=== PATIENT | male | born 1950 | race Caucasian/White ===

== ENCOUNTER 2017-08-26 12:41 | Outpatient (CLI) | payer MEDICARE, BC | END 2017-08-26 12:42 | disposition home or self-care (01) | LOC: BICRAD 12:41 | PROVIDERS: ATTEND Podiatrist | DX: M79.675 Pain in left toe(s) (principal) ==

== ENCOUNTER 2017-09-14 08:40 | Outpatient (CLI) | payer MEDICARE, BC ==
[2017-09-14 09:40] LABS: Mean Corpuscular HGB CONC 35.4 g/dL (32.0-36.0); Mean Corpuscular Hemoglobin 33.4 pg (27.0-31.0); Mean Corpuscular Volume 94.4 fl (80.0-94.0); Mean Platelet Volume 6.4 fL (7.4-10.4); Platelet Count 222 thou/uL (130-400); RBC Distribution Width 11.7 % (11.5-14.5); White Blood Cell (WBC) Count 5.2 thou/uL (4.8-10.8)
== END 2017-09-14 08:41 | disposition home or self-care (01) ==
LOC: LABBT 08:40
PROVIDERS: ATTEND Podiatrist
DX: Z01.812 Encounter for preprocedural laboratory examination (principal); M10.9 Gout, unspecified; M21.612 Bunion of left foot
CPT/HCPCS: 85027

== ENCOUNTER 2017-09-16 07:30 | Day surgery (SDC) | payer MEDICARE, BC ==
[2017-09-14 09:01] VITALS: BMI 29.5
[~2017-09-16 07:30] MED LIST: Ketorolac Tromethamine 30 MG/ML VIAL ONE; Lidocaine 1% PF 5 ML VIAL ONE; Ondansetron HCl/PF 4 MG/2 ML Vial ONE; PHENYLEPHRINE-NS 100 MCG/ML 10 ML SYRINGE ONE; Propofol 200 MG/20 ML VIAL ONE; ePHEDrine/0.9% NaCl/PF SYRINGE 50 mg/10 ml ONE
[2017-09-16] MEDS ORDERED: Bacitracin Zinc Ointment 30 gm TUBE ONE (09:48)
[2017-09-16] MEDS ORDERED: Neomycin-Polymyxin 1 ML AMP ONE (09:48)
[2017-09-16] MEDS ORDERED: Bupivacaine PF 0.5% 30 ML VIAL ONE (09:48)
[2017-09-16] MEDS ORDERED: Fentanyl 250 MCG/5 ML VIAL ONE (09:50)
[2017-09-16] MEDS ORDERED: Promethazine HCl 25 MG/ML VIAL ONE (09:51)
[2017-09-16] MEDS ORDERED: Propofol 1,000 MG/100 ML VIAL IV ONE (09:51)
== END 2017-09-16 12:17 | disposition home or self-care (01) ==
LOC: SDC 07:30
PROVIDERS: ATTEND Podiatrist
PROC: 0QBR0ZZ Excision of Left Toe Phalanx, Open Approach (ICD-10-PCS; principal; 2017-09-16)
DX: M21.612 Bunion of left foot (principal); M10.072 Idiopathic gout, left ankle and foot; M19.072 Primary osteoarthritis, left ankle and foot; M20.12 Hallux valgus (acquired), left foot; Z88.8 Allergy status to other drugs, medicaments and biological substances; Z98.890 Other specified postprocedural states
CPT/HCPCS: J1885; J2001; J2405; J2550; J2704; J3010; S0020

== ENCOUNTER 2019-10-22 07:41 | Outpatient (CLI) | payer MEDICARE, BC ==
--- NOTE | 2019-10-22 14:44 | MRI ---
MRI OF LEFT SHOULDER PERFORMED WITHOUT CONTRAST ENHANCEMENT: HISTORY: Left shoulder pain after falling in July. 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 There is some edema change involving the dist al end of the clavicle with some changes most pronounced at the AC joint level. This could indicate the sequelae of injury or related to osteolysis-type change. It may indicate a subtle trabecular fra cture. There is considerable motion artifact on this examination. There is a full-thickness partial-width f ar anterior tear of the anterior fibers of the supraspinatus tendon. It is somewhat difficult to est imate the size, although it appears to be approximately 7 mm in AP dimension. The tendon is retracte d by approximately a centimeter in this level. This is associated with a higher grade tear of the morgan bscapularis tendon. There appear to be a few of the more superior fibers intact, but the majority of the tendon is torn. The tear is involving the more anterior portion of the tendon which is retracte d by greater than a centimeter. Some of the undersurface articular-sided fibers are still intact. T here is dislocation of biceps tendon which is not a true intraarticular dislocation. It appears to b e more extending into the interstitium of this torn subscapularis tendon. There is moderate joint ef fusion associated with this. The inferior glenohumeral ligament is intact. The posterior inferior labrum and bony glenoid is some what irregular in appearance. 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 This probably is sequelae of a fracture and heal ing. I do not appreciate any significant rotator cuff muscle atrophy. IMPRESSION: 1. Examination is limited in quality due to motion artifact. 2. Marrow edema changes involving the distal end of the clavicle. Given the history of trauma, this could be the sequelae of injury or osteolysis related to the arthritic change at this level. 3. Far anterior partial width full-thickness supraspinatus tendon tear measuring approximately 7 mm in AP dimension. Fibers were retracted by approximately a centimeter. This is associated with a hig h-grade subscapularis tendon tear. A few of the superior fibers may still be intact and some of the undersurface more articular-sided fibers are still intact, but the majority of the tendon appears tor n and there is dislocation of the biceps tendon into the interstitium of the torn subscapularis tendo n. 4. Irregular appearance to the posterior inferior glenoid and labrum. 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 POS: [facility]
== END 2019-10-22 07:42 | disposition home or self-care (01) ==
LOC: BICMRI 07:41
PROVIDERS: ATTEND Orthopaedic Surgery
DX: S46.012A Strain of muscle(s) and tendon(s) of the rotator cuff of left shoulder, initial encounter (principal)

== ENCOUNTER 2019-11-12 07:19 | Outpatient (CLI) | payer MEDICARE, BC, OTHER ==
[2019-11-12 13:54] LABS: #Eosinphils 0.3 thou/uL (0.0-0.7); #Lymphocytes 1.5 thou/uL (1.20-3.40); #Monocytes 0.6 thou/uL (0.11-0.59); #Neutrophils 3.6 thou/uL (1.40-6.50); %Basophils 0.7 % (0.0-1.0); %Eosinophils 5.4 % (0.0-10.0); %Lymphocytes 24.7 % (21.0-51.0); %Monocytes 9.4 % (0.0-10.0); %Neutrophils 59.9 % (42.0-75.0); Hemoglobin 15.5 g/dL (14.0-18.0); Mean Corpuscular HGB CONC 33.9 g/dL (32.0-36.0); Mean Corpuscular Hemoglobin 33.9 pg (27.0-31.0); Mean Corpuscular Volume 99.9 fL (78.0-98.0); Mean Platelet Volume 7.3 fL (7.4-10.4); Platelet Count 218 thou/uL (130-400); RBC Distribution Width 11.7 % (11.5-14.5); Red Blood Cell (RBC) Count 4.58 mill/uL (4.70-6.10)
[2019-11-12 17:40] LABS: SARS-CoV-2 MS2 Positive; SARS-CoV-2 N Gene Negative; SARS-CoV-2 S Gene Negative; SARS-CoV-2 orf1ab Negative
== END 2019-11-12 07:20 | disposition home or self-care (01) ==
LOC: LABBT 07:19
PROVIDERS: ATTEND Orthopaedic Surgery
DX: Z01.812 Encounter for preprocedural laboratory examination (principal); Z11.59 Encounter for screening for other viral diseases; S46.012A Strain of muscle(s) and tendon(s) of the rotator cuff of left shoulder, initial encounter
CPT/HCPCS: 85025; U0003; 87635

== ENCOUNTER 2020-10-07 17:38 | Inpatient (IN) | payer MEDICARE, BC ==
[2020-10-07 18:12] LABS: #Basophils 0.1 thou/uL (0.0-0.2); #Eosinphils 0.4 thou/uL (0.0-0.7); #Lymphocytes 1.3 thou/uL (1.20-3.40); #Monocytes 0.5 thou/uL (0.11-0.59); #Neutrophils 6.5 thou/uL (1.40-6.50); %Basophils 0.6 % (0.0-1.0); %Eosinophils 4.3 % (0.0-10.0); %Lymphocytes 14.7 % (21.0-51.0); %Monocytes 6.1 % (0.0-10.0); %Neutrophils 74.4 % (42.0-75.0); Hemoglobin 15.1 g/dL (14.0-18.0); Mean Corpuscular HGB CONC 35.2 g/dL (32.0-36.0); Mean Corpuscular Hemoglobin 34.3 pg (27.0-31.0); Mean Corpuscular Volume 97.4 fL (78.0-98.0); Mean Platelet Volume 6.9 fL (7.4-10.4); Platelet Count 242 thou/uL (130-400); RBC Distribution Width 11.6 % (11.5-14.5); Red Blood Cell (RBC) Count 4.39 mill/uL (4.70-6.10); White Blood Cell (WBC) Count 8.7 thou/uL (4.8-10.8)
[2020-10-07] MEDS ORDERED: Nitroglycerin 2% Ointment 1 INCH/1 GM Packet ONE (18:28)
[2020-10-07] MEDS ORDERED: Aspirin Chewable 81 MG TAB ONE (18:28)
[2020-10-07 18:45] LABS: ALT (SGPT) 19 U/L (8-55); AST (SGOT) 22 U/L (5-34); Albumin 4.4 g/dL (3.4-4.8); Alkaline Phosphatase 75 U/L (40-110); Anion Gap 12 mmol/L (10-20); BUN (Urea Nitrogen) 16 mg/dL (8.4-25.7); Bilirubin, Total 0.6 mg/dL (0.2-1.2); Calc. Creatinine Clearance 0 mL/min (70-130); Calcium 9.8 mg/dL (7.8-10.44); Carbon Dioxide 27 mmol/L (23-31); Chloride 105 mmol/L (98-107); Globulin 2.9 g/dL (2.4-3.5); Glucose 88 mg/dL (80-115); Lipase 21 U/L (8-78); Potassium 4.3 mmol/L (3.5-5.1); Protein, Total 7.3 g/dL (5.8-8.1); Sodium 140 mmol/L (136-145)
[2020-10-07 21:28] LABS: Troponin I Less than 0.010 ng/mL (< 0.028)
[2020-10-07] MEDS ORDERED: Ondansetron ODT 4 MG TAB PO PRN (22:05)
[2020-10-07] MEDS ORDERED: Acetaminophen 325 MG TAB PO PRN (22:05)
[2020-10-07] MEDS ORDERED: HYDROcodone/Acetaminophen 5/325 mg Tablet PO PRN (22:05)
[2020-10-07] MEDS ORDERED: Ondansetron PF 4 MG/2 ML Vial IVP PRN (22:05)
[2020-10-07 22:13] VITALS: BMI 28.0
[2020-10-07 22:34] LABS: Magnesium 1.9 mg/dL (1.6-2.6)
[2020-10-08 00:26] LABS: Troponin I Less than 0.010 ng/mL (< 0.028)
[2020-10-08 04:26] LABS: #Lymphocytes 0.6 thou/uL (1.20-3.40); #Monocytes 0.1 thou/uL (0.11-0.59); #Neutrophils 6.9 thou/uL (1.40-6.50); %Basophils 0.1 % (0.0-1.0); %Eosinophils 0.1 % (0.0-10.0); %Lymphocytes 8.5 % (21.0-51.0); %Monocytes 0.6 % (0.0-10.0); %Neutrophils 90.7 % (42.0-75.0); Hemoglobin 13.9 g/dL (14.0-18.0); Mean Corpuscular HGB CONC 35.5 g/dL (32.0-36.0); Mean Corpuscular Hemoglobin 34.7 pg (27.0-31.0); Mean Corpuscular Volume 97.7 fL (78.0-98.0); Mean Platelet Volume 7.2 fL (7.4-10.4); Platelet Count 215 thou/uL (130-400); RBC Distribution Width 11.4 % (11.5-14.5); Red Blood Cell (RBC) Count 4.01 mill/uL (4.70-6.10); White Blood Cell (WBC) Count 7.6 thou/uL (4.8-10.8)
[2020-10-08 04:45] LABS: Anion Gap 14 mmol/L (10-20); BUN (Urea Nitrogen) 22 mg/dL (8.4-25.7); Calc. Creatinine Clearance 75 mL/min (70-130); Calcium 9.7 mg/dL (7.8-10.44); Carbon Dioxide 25 mmol/L (23-31); Chloride 103 mmol/L (98-107); Glucose 235 mg/dL (80-115); Potassium 4.1 mmol/L (3.5-5.1); Sodium 138 mmol/L (136-145)
[2020-10-08 05:22] LABS: SARS-CoV-2 PCR by NAA Not Detected (NotDetected)
[2020-10-08] MEDS ORDERED: Allopurinol 100 MG TAB PO PRN (07:35)
[2020-10-08] MEDS ORDERED: ADENOSINE 60 MG/20 ML VIAL ONE (08:42)
[2020-10-08] MEDS: Enoxaparin Sodium 40 MG/0.4 ML SYRINGE SC SCH (09:27)
[2020-10-09 07:55] LABS: Anion Gap 10 mmol/L (10-20); Calc. Creatinine Clearance 92 mL/min (70-130); Calcium 9.1 mg/dL (7.8-10.44); Carbon Dioxide 30 mmol/L (23-31); Chloride 103 mmol/L (98-107); Glucose 110 mg/dL (80-115); Potassium 4.3 mmol/L (3.5-5.1); Sodium 139 mmol/L (136-145)
[2020-10-09 08:04] LABS: #Eosinphils 0.1 thou/uL (0.0-0.7); #Lymphocytes 1.3 thou/uL (1.20-3.40); #Monocytes 1.1 thou/uL (0.11-0.59); #Neutrophils 14.3 thou/uL (1.40-6.50); %Eosinophils 0.4 % (0.0-10.0); %Lymphocytes 7.7 % (21.0-51.0); %Monocytes 6.3 % (0.0-10.0); %Neutrophils 85.7 % (42.0-75.0); Hemoglobin 14.7 g/dL (14.0-18.0); Mean Corpuscular HGB CONC 33.5 g/dL (32.0-36.0); Mean Corpuscular Hemoglobin 33.5 pg (27.0-31.0); Mean Platelet Volume 7.4 fL (7.4-10.4); Platelet Count 222 thou/uL (130-400); RBC Distribution Width 11.6 % (11.5-14.5); Red Blood Cell (RBC) Count 4.39 mill/uL (4.70-6.10); White Blood Cell (WBC) Count 16.6 thou/uL (4.8-10.8)
[2020-10-09 08:26] LABS: BUN (Urea Nitrogen) 21 mg/dL (8.4-25.7)
[2020-10-09] MEDS: Enoxaparin Sodium 40 MG/0.4 ML SYRINGE SC SCH (08:30)
[2020-10-09 08:40] VITALS: TEMP 97.9
[2020-10-09 12:14] VITALS: BP 154/87
[2020-10-09] MEDS ORDERED: Iopamidol-370 76% 500 ML 1 ML ONE (12:59)
== END 2020-10-09 14:37 | disposition home or self-care (01) | DRG 313 ==
LOC: ERS 17:38 → 2SW 20:11 → OBSVTOIN 10-09 11:22
PROVIDERS: ADMIT Student in an Organized Health Care Education/Training Program; ATTEND Family Medicine
DX: R07.9 Chest pain, unspecified (principal); M10.9 Gout, unspecified; Z20.822 Contact with and (suspected) exposure to COVID-19; M19.90 Unspecified osteoarthritis, unspecified site; F17.220 Nicotine dependence, chewing tobacco, uncomplicated; Z88.1 Allergy status to other antibiotic agents; Z88.8 Allergy status to other drugs, medicaments and biological substances; Z79.899 Other long term (current) drug therapy
CPT/HCPCS: 36415; 71045; 71275; 78452; 80048; 80053; 83690; 83735; 83880; 84100; 84443; 84484; 85025; 87635; 93005; 93017; 93306; A9500; G0378; J0153; Q9967; U0003; U0005

== ENCOUNTER 2020-12-25 10:05 | Outpatient (CLI) | payer MEDICARE, BC | END 2020-12-25 10:06 | disposition home or self-care (01) | LOC: BICRAD 10:05 | PROVIDERS: ATTEND Internal Medicine Critical Care Medicine | DX: R06.00 Dyspnea, unspecified (principal) | CPT/HCPCS: 71046 ==

== ENCOUNTER 2022-08-04 08:49 | Outpatient (CLI) | payer MEDICARE, BC | END 2022-08-04 08:50 | disposition home or self-care (01) | LOC: MRI 08:49 | PROVIDERS: ATTEND Orthopaedic Surgery | DX: M11.261 Other chondrocalcinosis, right knee (principal); S83.231A Complex tear of medial meniscus, current injury, right knee, initial encounter; M22.2X1 Patellofemoral disorders, right knee; M17.11 Unilateral primary osteoarthritis, right knee; M25.461 Effusion, right knee; M65.861 Other synovitis and tenosynovitis, right lower leg ==

== ENCOUNTER 2022-12-07 06:02 | Observation (INO) | payer MEDICARE, BC ==
[2022-12-03 10:09] VITALS: BMI 27.8
[2022-12-07] MEDS ORDERED: Tranexamic Acid 1,000 MG/10 ML VIAL ONE (07:15)
[2022-12-07] MEDS ORDERED: Sodium Chloride 0.9% 100 ML ONE ×2 (07:15→08:49)
[2022-12-07] MEDS ORDERED: Vancomycin (BATCH) 1.5 GRAM/300 ML BAG ONE (07:15)
[2022-12-07] MEDS ORDERED: Midazolam HCl 2 mg/2 ml Vial ONE (08:06)
[2022-12-07] MEDS ORDERED: Bupivacaine PF 0.5% 30 ML VIAL ONE ×2 (08:06→09:28)
[2022-12-07] MEDS ORDERED: fentaNYL 50 mcg/mL 1 mL Vial ONE (08:06)
[2022-12-07] MEDS ORDERED: CEFAZOLIN 2 GM VIAL ONE (08:49)
[2022-12-07] MEDS ORDERED: fentaNYL PF 100 MCG/2 ML SYRINGE ONE (09:25)
[2022-12-07] MEDS ORDERED: HYDROmorphone 0.5 MG/0.5 ML SYRINGE ONE (09:25)
[2022-12-07] MEDS ORDERED: fentaNYL 50 mcg/mL 1 mL Vial SLOW IVP PRN (09:29)
[2022-12-07] MEDS ORDERED: Zolpidem Tartrate 5 MG TAB PO PRN ×2 (09:30→11:34)
[2022-12-07] MEDS ORDERED: HYDROcodone/Acetaminophen 10/325 mg Tablet PO PRN ×2 (09:30)
[2022-12-07] MEDS ORDERED: Promethazine HCl 25 MG/ML VIAL IM PRN ×3 (09:30→11:48)
[2022-12-07] MEDS ORDERED: Ropivacaine 0.2% 550 ML 550 ML NERVE BLCK SCH (09:30)
[2022-12-07] MEDS ORDERED: Ondansetron PF 4 MG/2 ML Vial IVP PRN ×2 (09:30→11:34)
[2022-12-07] MEDS ORDERED: traMADol HCl 50 MG TAB PO PRN (09:30)
[2022-12-07] MEDS ORDERED: PROPOFOL 200 MG/20 ML VIAL ONE (09:41)
[2022-12-07] MEDS ORDERED: PHENYLEPHRINE-NS 100 MCG/ML 10 ML SYRINGE ONE (09:41)
[2022-12-07] MEDS ORDERED: Dexamethasone 20 MG/5 ML VIAL ONE (09:41)
[2022-12-07] MEDS ORDERED: Ketorolac Tromethamine 30 MG/ML VIAL ONE (09:41)
[2022-12-07] MEDS ORDERED: Ondansetron PF 4 MG/2 ML Vial ONE (09:41)
[2022-12-07] MEDS ORDERED: Lidocaine 1% PF 5 ML VIAL ONE (09:41)
[2022-12-07] MEDS ORDERED: Bupivacaine HCl 0.5%/Epinephrine 1:200,000/PF 30 ml Vial ONE (09:41)
[2022-12-07] MEDS ORDERED: Acetaminophen 325 MG TAB PO PRN (11:34)
[2022-12-07] MEDS ORDERED: diphenhydrAMINE 25 MG CAP PO PRN (11:34)
[2022-12-07] MEDS ORDERED: PACU-Morphine 4MG/ML VIAL SLOW IVP PRN (11:48)
[2022-12-07] MEDS ORDERED: Ondansetron HCl/PF 4 MG/2 ML Vial IVP PRN (11:48)
[2022-12-07] MEDS: Dextrose 5 %-0.45 % NaCl 1,000 ML IV SCH ×3 (13:20→22:00)
[2022-12-07] MEDS: CEFAZOLIN 2 GM in Sodium Chloride 0.9% 100 ML IVPB SCH (16:16)
[2022-12-07] MEDS: Aspirin 81 mg Enteric Coated Tablet PO SCH (20:15)
[2022-12-08] MEDS: CEFAZOLIN 2 GM in Sodium Chloride 0.9% 100 ML IVPB SCH (01:39)
[2022-12-08] MEDS: traMADol HCl 50 MG TAB PO PRN ×2 (01:52→08:36)
[2022-12-08 03:34] VITALS: TEMP 98.2
[2022-12-08 06:09] LABS: Hemoglobin 11.8 g/dL (14.0-18.0); Mean Corpuscular HGB CONC 35.1 g/dL (32.0-36.0); Mean Corpuscular Hemoglobin 33.4 pg (27.0-31.0); Mean Corpuscular Volume 95.2 fl (78.0-98.0); Mean Platelet Volume 9.4 fL (7.4-10.4); Platelet Count 167 10x3/uL (130-400); RBC Distribution Width 12.3 % (11.5-14.5); Red Blood Cell (RBC) Count 3.53 mill/uL (4.70-6.10); White Blood Cell (WBC) Count 11.5 10x3/uL (4.8-10.8)
[2022-12-08 07:31] VITALS: BP 111/68
[2022-12-08] MEDS: Aspirin 81 mg Enteric Coated Tablet PO SCH (08:36)
[2022-12-08] MEDS ORDERED: Multivitamin W/ Minerals 1 TAB PO SCH (09:00)
[2022-12-08] MEDS ORDERED: Amlodipine 5 MG TAB PO SCH (09:00)
[2022-12-08] MEDS ORDERED: Ferrous Gluconate 324 MG TAB PO SCH (09:00)
[2022-12-08] MEDS ORDERED: Allopurinol 100 MG TAB PO SCH (09:00)
[2022-12-08] MEDS ORDERED: Senokot S 8.6-50 MG TAB PO SCH (09:00)
== END 2022-12-08 10:30 | disposition home or self-care (01) ==
LOC: SDC 06:02 → SURG A 11:34
PROVIDERS: ADMIT Orthopaedic Surgery; ATTEND Orthopaedic Surgery
PROC: 0SRC0JZ Replacement of Right Knee Joint with Synthetic Substitute, Open Approach (ICD-10-PCS; principal; 2022-12-07)
DX: M17.11 Unilateral primary osteoarthritis, right knee (principal); M11.861 Other specified crystal arthropathies, right knee; K21.9 Gastro-esophageal reflux disease without esophagitis; M10.9 Gout, unspecified; I10 Essential (primary) hypertension; Z88.8 Allergy status to other drugs, medicaments and biological substances; Z79.899 Other long term (current) drug therapy
CPT/HCPCS: 27447; 73560; 85027; 97110 ×2; 97116 ×2; 97530; A4306; C1776; J3010; J3370; 36415; J1100; J1170; J1885; J2250; J2405; J2704; J2795; J3490; S0020